=== PATIENT | male | born 1965 | race Caucasian/White ===

== ENCOUNTER 2022-01-04 11:05 | Emergency (ER) | payer OTHER ==
[2022-01-04 11:18] VITALS: BP 117/81; PULSE 62; RESP 18; TEMP 98.5; BMI 31.9
[2022-01-04] MEDS ORDERED: KETOROLAC TROMETHAMINE 30 MG/1 ML VIAL IM ONE (12:13)
[2022-01-04] MEDS ORDERED: LIDOCAINE 5% TOPICAL PATCH TP ONE (12:13)
[2022-01-04] MEDS ORDERED: LIDOCAINE 5% TOPICAL PATCH ONE (12:29)
[2022-01-04] MEDS ORDERED: KETOROLAC TROMETHAMINE 30 MG/1 ML VIAL ONE (12:29)
== END 2022-01-04 12:50 | disposition home or self-care (01) ==
LOC: JERFT 11:05
PROC: 3E0233Z Introduction of Anti-inflammatory into Muscle, Percutaneous Approach (ICD-10-PCS; principal; 2022-01-04)
DX: M54.50 Low back pain, unspecified (principal)
CPT/HCPCS: 96372; 99284-25